=== PATIENT | female | born 1985 | race Caucasian/White ===

== ENCOUNTER 2017-07-23 11:37 | Outpatient (CLI) | payer OTHER ==
[2017-07-23 12:46] LABS: #Basophils 0.1 thou/uL (0.0-0.2); #Eosinphils 0.1 thou/uL (0.0-0.7); #Lymphocytes 1.8 thou/uL (1.20-3.40); #Monocytes 0.7 thou/uL (0.11-0.59); #Neutrophils 3.7 thou/uL (1.40-6.50); %Eosinophils 1.7 % (0.0-10.0); %Lymphocytes 27.9 % (21.0-51.0); %Monocytes 10.9 % (0.0-10.0); %Neutrophils 57.6 % (42.0-75.0); Hemoglobin 13.8 g/dL (12.0-16.0); Mean Corpuscular Hemoglobin 30.3 pg (27.0-31.0); Mean Corpuscular Volume 89.2 fl (81.0-99.0); Mean Platelet Volume 10.1 fL (7.4-10.4); Platelet Count 216 thou/uL (130-400); Red Blood Cell (RBC) Count 4.54 mill/uL (4.20-5.40); White Blood Cell (WBC) Count 6.4 thou/uL (4.8-10.8)
[2017-07-23 13:02] LABS: BHCG - Serum Negative (NEGATIVE); Pregs Control Background? CLEAR/WHITE (CLR/WHITE); Pregs Control Bar Appear? YES (CONTROL BAR)
== END 2017-07-23 11:38 | disposition home or self-care (01) ==
LOC: LABBT 11:37
PROVIDERS: ATTEND Obstetrics & Gynecology
DX: Z01.812 Encounter for preprocedural laboratory examination (principal); N82.8 Other female genital tract fistulae; N82.4 Other female intestinal-genital tract fistulae
CPT/HCPCS: 84703; 85025; 86850; 86900; 86901

== ENCOUNTER 2017-07-27 09:59 | Day surgery (SDC) | payer OTHER ==
[2017-07-23 11:57] VITALS: BMI 22.4
--- NOTE | 2017-07-27 04:42 | HP ---
DATE OF PLANNED PROCEDURE: 07/27/2017 HISTORY OF PRESENT ILLNESS: Ms. Estella Hernandez is a 31-year-old who has been seen in the office and evaluated desiring definitive management of a draining Bartholin's gland that is fistulized to t he vulva. The patient gives a long history of constant clear drainage of fluid coming from the left vulva. She first initially noted after her first vaginal delivery. The patient reports after her fi rst vaginal delivery, she had a vaginal cyst that required drainage and IV antibiotics for group B st rep. She reports that after that she with years without having any problem; however, she noted recur rence approximately 08/2016. At that time, the patient reported pain and swelling in the vulvar area . She reported that she can feel the swelling tracking into the vagina, will have drainage from the area. The patient desires definitive surgical management of the fistulous lesions. PAST MEDICAL HISTORY: None. PAST SURGICAL HISTORY: Tonsils and adenoids. CURRENT MEDICATIONS: None. OB HISTORY: Two vaginal deliveries. GYNECOLOGIC HISTORY: Normal menstrual periods. No history of abnormal Pap smear, PID, or STD. SOCIAL HISTORY: Patient is . She does not use alcohol or drugs. ALLERGIES: Has no known drug allergies. FAMILY HISTORY: Significant for hypertension in her father. REVIEW OF SYSTEMS: Negative. PHYSICAL EXAMINATION: VITAL SIGNS: Blood pressure 114/70, weight 139 pounds, BMI 22.4. GENERAL: No acute distress. Alert and oriented. HEENT: Grossly normal. LUNGS: Nonlabored breathing. ABDOMEN: Soft, nontender. No palpable masses. GENITOURINARY: Normal urethral meatus. External genitalia with a 7 to 8-mm raised exophytic lesion on the left perineum with serous drainage from the lesion as well as avoiding area between it in the underlying epidermis. From this lesion, a fistula is palpable through the vagina to the Bartholin's gland, otherwise normal. MUSCULOSKELETAL: Grossly normal. NEUROLOGIC: Grossly normal. SKIN: Normal with the exception of left perineal lesion. PSYCHIATRIC: Appropriate affect. ASSESSMENT AND PLAN: Ms. Estella Hernandez is a 31-year-old with a fistulous lesion between the Bartholi n's gland through the vagina to the epidermis presenting on the left perineum. The patient desires r esection and revision of the fistulous tract. She wished understands the risks are to include, but n ot limited to bleeding, infection, dyspareunia, recurrence of the fistula, Bartholin's gland cyst or abscess, possible need for future medical and/or surgical management. Patient's questions have been answered to her satisfaction and she desires to proceed with the procedure as listed above.
[2017-07-27] MEDS ORDERED: CEFAZOLIN/Water 2 GM/20 ML SYRINGE ONE (11:41)
[2017-07-27] MEDS ORDERED: Ondansetron HCl/PF 4 MG/2 ML Vial ONE ×2 (11:57→12:12)
[2017-07-27] MEDS ORDERED: Lidocaine 1% PF 5 ML VIAL ONE (11:57)
[2017-07-27] MEDS ORDERED: PROPOFOL 200 MG/20 ML VIAL ONE (11:57)
[2017-07-27] MEDS ORDERED: Dexamethasone 20 MG/5 ML VIAL ONE (11:57)
[2017-07-27] MEDS ORDERED: Lidocaine 2% Jelly 5 ML TUBE ONE (12:12)
[2017-07-27] MEDS ORDERED: Midazolam HCl 2 mg/2 ml Vial ONE (12:12)
[2017-07-27] MEDS ORDERED: Fentanyl 100 MCG/2 ML VIAL ONE ×2 (12:12)
[2017-07-27] MEDS ORDERED: Lidocaine 1% w/Epinephrine 1:100K 30 ML VIAL ONE ×2 (12:13→12:25)
[2017-07-27] MEDS ORDERED: Meperidine HCl/PF 25 MG/ML VIAL ONE (13:40)
--- NOTE | 2017-07-27 15:50 | OP ---
DATE OF PROCEDURE: 07/27/2017 Intraoperative consult and exam under anesthesia for Dr. Fernando Gonsalves. PREOPERATIVE DIAGNOSES: Infected chronic draining Bartholin cyst, perineum, postop fistula in ano, a nterior transsphincteric. PROCEDURE: Exam under anesthesia. SURGEON: Lee Louis M.D. ANESTHESIA: General. ESTIMATED BLOOD LOSS: Minimal. COMPLICATIONS: None. FINDINGS: The patient has a transsphincteric fistula. The external opening is anterior just to the left of introitus. Fistula probe shows the fistula tract to go very posterior in deep ends up at the anterior 12 o'clock position above the dentate line. It is transsphincteric. No obvious active inf ection. DESCRIPTION OF PROCEDURE: The patient is already prepped and draped in a sterile fashion. Dr. Gonsalves called into the room when her probe of this fistula did not go to the vagina, but however, went post erior into the rectum, I passed the probe myself, it went deep from this to the left of introitus ope davion behind the sphincter muscles and enters at the 12 o'clock position, 2 centimeters proximal to th e dentate line. There is no active purulence, no bleeding. There is no anal canal mass. There are small external hemorrhoids. No significant internal hemorrhoids. Given the depth of this fistula an d the length of this fistula, she will likely need referral to colorectal surgeon because it is activ robert draining, but no purulence. Seton was not placed. The patient was en route to recovery in sta e condition. My office will arrange for referral to colorectal specialist.
--- NOTE | 2017-07-27 16:55 | OP ---
DATE OF PROCEDURE: 07/27/2017 PREOPERATIVE DIAGNOSIS: Fistula with history of Bartholin's abscess. POSTOPERATIVE DIAGNOSIS: Rectal fistula. SURGEON: Fernando Gonsalves D.O. VP ACCOUNT DIRECTOR: Maryjane Cao M.D. INTRAOPERATIVE CONSULT: Lee Louis M.D. ANESTHESIA: LMA. COMPLICATIONS: None. ESTIMATED BLOOD LOSS: None. INTRAOPERATIVE FINDINGS: 1. Cutaneous lesion with fistula noted with lacrimal dilators and bimanual palpation to the rectum. 2. Normal vaginal mucosa. DESCRIPTION OF PROCEDURE: The patient was taken back to the OR with IV fluids running. Once she was in the OR, she was placed in dorsal supine position until anesthesia was obtained. Once the patient was asleep, she was placed in dorsal lithotomy position and the vagina was prepped and draped in nor mal fashion for gynecologic surgery. The bladder was drained. Rectovaginal exam was performed with fistulous tract, approximately 4 cm long and palpable between the vaginal mucosa and rectum, a lacrim al dilator was placed through the external draining lesion and was noted to tract into the rectum and not as previously thought towards the Bartholin's gland. At this point, an intraoperative consult w as placed and Dr. Louis presented to the room. He repeated the exam and further explored the fistu la with a dilator and felt that it was a rectal fistula with a second anterior compartment. In addit ion to the symptomatic portion of the fistula that was felt on rectovaginal exam. We discussed manag ement option for the patient which will include a referral to colorectal surgery for the appropriate procedure. The procedure was then completed. The perineum was cleaned. Of note, some lidocaine wit h epinephrine had been placed into the vaginal mucosa around the fistula and the manipulation area. The patient tolerated the procedure well.
== END 2017-07-27 14:52 | disposition home or self-care (01) ==
LOC: SDC 09:59
PROVIDERS: ATTEND Obstetrics & Gynecology
PROC: 0UJMXZZ Inspection of Vulva, External Approach (ICD-10-PCS; principal; 2017-07-27)
DX: N82.3 Fistula of vagina to large intestine (principal); N75.0 Cyst of Bartholin's gland; Z79.899 Other long term (current) drug therapy
CPT/HCPCS: 96374; J1100; J2001; J2175; J2250; J2405; J2704; J3010